=== PATIENT | male | born 1960 | race Caucasian/White ===

== ENCOUNTER 2017-09-30 16:23 | Emergency (ER) | payer SELFPAY ==
[~2017-09-30] VITALS: Ht 172.7 cm; Wt 95.3 kg
[2017-09-30 16:31] VITALS: BP 139/94
== END 2017-09-30 19:20 | disposition left against medical advice (07) ==
LOC: ER 16:28
DX: M79.645 Pain in left finger(s) (principal); Z53.21 Procedure and treatment not carried out due to patient leaving prior to being seen by health care provider